=== PATIENT | female | born 1990 | race African-American/Black ===

== ENCOUNTER 2016-10-06 05:37 | Observation (INO) | payer OTHER ==
[2016-10-01 10:21] VITALS: BMI 31.0
--- NOTE | 2016-10-01 10:54 | PAT Medication Instructions ---
Service Date Oct 01, 2016. Current Home Medication List Ibuprofen (Advil), 400-600 MG PO PRN [Asmanex 220MCG], 1 PUFF INH HS Medication Instructions For Your Scheduled Surgery Ibuprofen (Advil), 400-600 MG PO PRN (not told to stop by surgeon- just use with caution) Albuterol inhaler- can use AM of surgery if needed- bring with you to hospital on day of surgery - Take the following medications as scheduled the night before surgery: Asmanex 220MCG 1 PUFF INH HS If you have any questions please call us at [phone] or [phone] ( [place]) or [phone]
[2016-10-01 11:08] LABS: BASO % 0.4 %; BASO ABS # 0.02 K/uL (0-0.2); COMPLETE YES; EOS % 2.2 %; HEMATOCRIT 36.6 % (37-47); IG% 0.2 %; LYMPH % 32.6 %; LYMPH ABS # 1.48 K/uL (1.2-3.4); MEAN CELL VOLUME 86.9 fL (80-100); MEAN CORPUSCULAR HEMOGLOBIN 29.5 pg (25-34); MEAN CORPUSCULAR HGB CONC 33.9 g/dl (32-36); MEAN PLATELET VOLUME 9.6 fL (7.4-10.4); MONO % 7.3 %; NEUT % 57.3 %; PLATELET COUNT 212 K/uL (130-400); RED BLOOD COUNT 4.21 M/uL (4.2-5.4); WHITE BLOOD COUNT 4.54 K/uL (4.8-10.8)
[2016-10-01 11:25] LABS: PREG INTERNAL NEGATIVE QC NEG CLEAR BACKGROUND; PREG INTERNAL POSITIVE QC POS CONTROL LINE
[~2016-10-06] VITALS: Ht 167.6 cm; Wt 88.2 kg
[2016-10-06] VITALS (7 sets, daily range): BP systolic 121–148; BP diastolic 63–82; PULSE 67–88; TEMP 36.3–36.9; O2SAT 99–100; Ht 167.6 cm; Wt 88.2 kg
[~2016-10-06 05:37] MED LIST: ASMANEX 220 MCG INH; IBUP-1050 PO
[2016-10-06] MEDS ORDERED: CEFAZOLIN 2000 MG/60 ML D5W 50 ML IV SCH (06:00)
[2016-10-06] MEDS ORDERED: LACTATED RINGER'S 1000ML 1,000 ML IV SCH ×2 (06:00)
[2016-10-06] MEDS ORDERED: MIDAZOLAM HCL 1 MG/ML 2ML VIAL ONE (06:32)
[2016-10-06] MEDS ORDERED: FENTANYL CITRATE INJ 50 MCG/1 ML 2 ML VIAL ONE ×2 (06:32→07:48)
--- NOTE | 2016-10-06 06:56 | History & Physical Bridge Note ---
H&P Re-Evaluation Bridge Note: I have examined the patient, reviewed the History & Physical and in the interval since the performance of the History & Physical I have noted the following changes of clinical significance: Discussed surgery with patient - plan is to attempt laparoscopic myomectomy, as imaging appears to show pedunculated fibroid. If this cannot be accomplished robotically, will need to convert to open case. Patient is aware of this and agreeable.
[2016-10-06] MEDS ORDERED: METHYLENE BLUE 0.5% 10 ML VIAL ONE (07:16)
[2016-10-06] MEDS ORDERED: BUPIVACAINE 0.5 % 5 MG/1 ML MPF 30ML VIAL ONE (07:16)
[2016-10-06] MEDS ORDERED: VASOPRESSIN 20 UNIT/ML VIAL ONE (07:33)
[2016-10-06] MEDS ORDERED: SODIUM CHLORIDE 0.9% PF 50 ML VIAL ONE (08:13)
[2016-10-06] MEDS ORDERED: SODIUM CHLORIDE 0.9% INJ 10 ML VIAL ONE (08:13)
[2016-10-06] MEDS ORDERED: PROPOFOL IV EMULSION 10 MG/ML 20 ML VIAL IV ONE (08:31)
[2016-10-06] MEDS ORDERED: ROCURONIUM BROMIDE 10 MG/ML 5 ML VIAL ONE (08:31)
[2016-10-06] MEDS ORDERED: LIDOCAINE HCL 2% 2 ML VIAL (20MG/ML) ONE (08:31)
[2016-10-06] MEDS ORDERED: DEXAMETHASONE SOD INJ 4 MG/ML VIAL ONE (08:31)
[2016-10-06] MEDS ORDERED: NEOSTIGMINE METHYLSULFATE 5 MG/5 ML SYR ONE (08:39)
[2016-10-06] MEDS ORDERED: GLYCOPYRROLATE INJ 0.2 MG/ML VIAL ONE (08:39)
[2016-10-06] MEDS ORDERED: ONDANSETRON INJ 2 MG/ML 2 ML VIAL ONE (08:39)
[2016-10-06] MEDS ORDERED: ATROPINE SULFATE 0.1 MG/ML 5ML SYR IV PRN (08:45)
[2016-10-06] MEDS ORDERED: ONDANSETRON INJ 2 MG/ML 2 ML VIAL IV PRN ×2 (08:45→10:45)
[2016-10-06] MEDS ORDERED: EpHEDrine SULFATE INJ 50 MG/ML AMP IV PRN (08:45)
[2016-10-06] MEDS ORDERED: LABETALOL HCL IV 5 MG/ML 20ML IV PRN (08:45)
[2016-10-06] MEDS ORDERED: HYDROmorphone INJ 1 MG/ML SYR IV PRN (08:45)
[2016-10-06] MEDS ORDERED: MEPERIDINE HCL 25 MG/ML CARP IV PRN (08:45)
[2016-10-06] MEDS ORDERED: PHENYLEPHRINE 100MCG/ML 5ML SYR ONE (09:40)
[2016-10-06] MEDS ORDERED: TISSEEL FIBRIN SEALANT 4ML TOP ONE (09:50)
[2016-10-06] MEDS ORDERED: HYDROmorphone INJ 2 MG/ML SYR/VIAL ONE (09:55)
[2016-10-06] MEDS ORDERED: ALBUTEROL HFA INHALER 8.5 GM INH ONE (10:35)
[2016-10-06] MEDS ORDERED: PROMETHAZINE HCL INJ 25 MG in SODIUM CHLORIDE 0.9% 50ML 50 ML IV PRN (10:45)
[2016-10-06] MEDS ORDERED: OXYCODONE/ACETAMINOPHEN 5-325 TAB PO PRN ×2 (10:45)
[2016-10-06] MEDS ORDERED: SIMETHICONE 80 MG CHEW PO PRN (10:45)
[2016-10-06] MEDS ORDERED: MAGNESIUM HYDROXIDE SUSP 30 ML UDC PO PRN (10:45)
--- NOTE | 2016-10-06 10:49 | [facility] Post Operative Brief Note ---
Immediate Operative Summary Operative Date Oct 06, 2016. Pre-Operative Diagnosis Uterine Leiomyoma Post-Operative Diagnosis Same as preop Procedure(s) Performed Laparoscopic Myomectomy Robotic Asisst with use of Excite Technique Surgeon Dr. Cook Cargo Bracer Surgeon(s) Dr. Ken Estimated Blood Loss 15 ml Findings Large exophytic posterior uterine fibroid. Uterus otherwise normal appearing. Tubes, ovaries, visible bowel, and appendix all appear normal. Specimens A. Uterine Fibroid Drains peter, clear yellow Anesthesia general Disposition Recovery Room / PACU
[2016-10-06] MEDS: FENTANYL CITRATE INJ 50 MCG/1 ML 2 ML VIAL IV PRN ×5 (10:50→11:25)
[2016-10-06] MEDS ORDERED: MOMLX PO (11:13)
[2016-10-06] MEDS ORDERED: IBUPROFEN 200 MG/10 ML UDC PO PRN (11:15)
[2016-10-06] MEDS ORDERED: [UNRECOGNIZED DRUG - CODE] PO (11:17)
[2016-10-06] MEDS ORDERED: IBUP100S PO (11:17)
[2016-10-06] MEDS ORDERED: RXCS5 PO (11:17)
--- NOTE | 2016-10-06 11:19 | Discharge Instructions ---
Discharge Instructions Date of Service Oct 06, 2016. Visit Reason for Visit: Uterine Fibroid Discharge Discharge Diagnosis / Problem: s/p myomectomy Discharge Goals Goal(s): Therapeutic intervention Activity Recommendations Activity Limitations: per Instructions/Follow-up section Anesthesia . Post Anesthesia Instructions: If you have had General Anesthesia or IV Sedation: * Do not drive today. * Resume driving when surgeon permits. * Do not make important decisions or sign legal documents today. * Call surgeon for: 1. Temperature elevations greater than 101 degrees F. 2. Uncontrollable pain. 3. Excessive bleeding. 4. Persistent nausea and vomiting. 5. Medication intolerance (nausea, vomiting or rash). * For nausea and vomiting use only clear liquids such as: tea, soda, bouillon until nausea subsides, then gradually increase diet as tolerated. * If you have any concerns or questions, call your surgeon's office. If physician is unavailable and it is an emergency, call 911 or go to the nearest emergency room. . Instructions / Follow-Up Instructions / Follow-Up ACTIVITY RECOMMENDATIONS: Activity: * During the first week at home, your activity should be similar to that done at the hospital prior to discharge. Your primary activity is in-house walking interspersed with rest periods. Preparing lunch for yourself is acceptable. You may go up and down stairs. Try to stay up progressively longer periods of time to help regain your strength more quickly. * During the second week at home, activities should include some meal preparation, walking to strengthen abdominal muscles and riding in a car. You may drive a car and make brief shopping trips at the end of the second week at home. * Lifting should not exceed 15-20 pounds during the first month after surgery. * Sexual intercourse can usually be resumed about 6 weeks after surgery depending on findings at your post-operative examinations. Bathing: * Showers or baths are permissible. Sitting in four to six inches of hot water (sitz bath) is often comforting after vaginal surgery and is permitted at any time. A sitz bath at bedtime can also assist in a better night's sleep. SPECIAL CARE INSTRUCTIONS: The major discomforts related to surgery have now passed and progressive improvement will occur. The tight uncomfortable feeling in the abdominal, pelvic and back area will gradually fade away. Fatigue may take the longest to disappear; your energy level may take several weeks to return to normal. At times you may become frustrated or impatient over not feeling as well or doing as much as you'd like , but this is a normal reaction to surgery and will pass with time. Vaginal Discharge: * Odorous, blood-tinged or brownish discharge may be present for one to three weeks after surgery. * Pads should be used and not tampons. * Stitches may be passed vaginally. * Bleeding may be somewhat increased approximately two weeks after surgery, which is related to the stitches dissolving. * If bleeding becomes free flowing, notify our office at . Bowel Care: * Constipation after surgery is very common. Foods that promote bowel activity (bran, fruit, prune juice) should be included in your diet. * A capsule, DIALOSE-PLUS, can be purchased without a prescription and can be taken daily (one or two capsules) to assist in promoting bowel activity. * If you have had vaginal surgery involving your rectum, we will discuss this when discharged from the hospital. Catheter or "CYSTO-CATH": * Approximately 80% of "bladder repair" patients will require a catheter at home until the swelling recedes. * Some patients require days to weeks before adequate bladder emptying will resume. * In general, after each time you urinate, un-clamp the catheter again. Measure the amount in the bag. When this is consistently below 100cc, call the office to make an appointment to have the catheter removed. Temperature: * Any fever above 100.4 degrees F should be reported to our office at . FOLLOW-UP: Post-Operative Appointments: * Individual instructions will have been given about the timing of your first examination, but this is usually at the end of the second week home. * You will need to call the office at soon after discharge to make the appointment for your post-op check-up if it has not already been scheduled. * Additional information regarding activity, sexual intercourse and when to return to work will be given at this appointment. WE WISH YOU A SPEEDY RECOVERY! Diet Recommendations Recommended Home Diet: resume previous diet Procedures Procedures Performed: Laparoscopic Myomectomy Robotic Asisst with use of Excite Technique Pending Studies Studies pending at discharge: no Medical Emergencies . Who to Call and When: Medical Emergencies: If at any time you feel your situation is an emergency, please call 911 immediately. . Non-Emergent Contact Non-Emergency issues call your: Primary Care Provider, [facility] . . "Provider Documentation" section prepared by Cece Cook.
--- NOTE | 2016-10-06 11:21 | Anesthesiology Progress Note ---
Anesthesia Post Op Note Date & Time Oct 06, 2016 at 11:21 Vital Signs Pain Intensity: 7 Vital Signs Past 12 Hours Date Time Temp Pulse Resp B/P Pulse Ox O2 Delivery O2 Flow Rate FiO2 10/06/16 11:02 77 13 100 10/06/16 11:02 79 13 10/06/16 11:01 130/73 10/06/16 10:57 81 15 100 10/06/16 10:57 81 15 10/06/16 10:56 127/71 10/06/16 10:52 71 19 100 10/06/16 10:52 72 19 10/06/16 10:51 128/83 10/06/16 10:49 73 17 100 10/06/16 10:49 73 17 10/06/16 10:46 123/71 10/06/16 10:44 72 18 100 10/06/16 10:44 72 18 10/06/16 10:41 128/72 10/06/16 10:39 78 17 100 10/06/16 10:39 79 17 10/06/16 10:36 116/65 10/06/16 10:34 71 19 128/58 100 10/06/16 10:34 36.0 71 16 128/58 100 Mask 10 10/06/16 10:34 71 19 10/06/16 06:16 36.7 79 18 121/63 100 Room Air Notes Mental Status: alert / awake / arousable, participated in evaluation Pt Amnestic to Procedure: Yes Nausea / Vomiting: adequately controlled Pain: adequately controlled Airway Patency, RR, SpO2: stable & adequate BP & HR: stable & adequate Hydration State: stable & adequate Anesthetic Complications: no major complications apparent
--- NOTE | 2016-10-06 11:36 | OPERATIVE REPORT ---
DATE OF OPERATION: 10/06/2016 PREOPERATIVE DIAGNOSES: 1. Uterine leiomyoma. 2. Pelvic pain. POSTOPERATIVE DIAGNOSES: Same. PROCEDURES PERFORMED: Laparoscopic myomectomy with robotic assistance and used of ExCITE technique. SURGEON: Dr. Ccee Cook. QUALITY ASSURANCE MONITOR: Dr. Ken. ESTIMATED BLOOD LOSS: 15 mL FINDINGS: Large exophytic posterior uterine fibroid. Uterus otherwise normal appearing. Tubes, ovaries, visible bowel, and appendix all appear normal. SPECIMENS: Uterine fibroid to pathology. DRAINS: Lilly, clear yellow at conclusion of case. ANESTHESIA: General. DISPOSITION: Stable and good to recovery room PACU. INDICATIONS FOR PROCEDURE: The patient is a 26-year-old G0 who has a known uterine mass and associated pelvic pain. Ultrasound of 07/04/2016 showed a uterus that was 7.7 x 4.6 x 5 cm with an endometrial lining of 5.1 mm. Ovaries were normal. There did appear to be a complex cystic mass measuring 5.6 x 5.9 x 5.4 cm on ultrasound; however, MRI on 07/08/2016 showed an exophytic mass from the posterior uterine body measuring 6.2 x 7 x 6.1 cm, likely a large pedunculated uterine fibroid. DESCRIPTION OF PROCEDURE: The patient was seen in the preoperative holding area where risks, benefits, alternatives to surgery were reviewed. All questions were answered. She elected to proceed with surgery. We discussed risks, specifically conversion to open, and if there was an ovarian cyst, the possibility of removing the ovary with the cyst. Also discussed the possibility of hysterectomy in the course of attempting to remove the fibroid from the uterine musculature. She was taken to the operating room where 2 grams of Ancef were infused preoperatively. General anesthesia was introduced. She was prepared and draped in the usual sterile fashion in the dorsal lithotomy position. A timeout was confirmed. A Lilly catheter was placed. A weighted speculum was placed in the vagina and the cervix was visualized. The anterior lip was grasped with a single tooth tenaculum. A VCare medium size was inserted as a uterine manipulator. Gloves were changed and attention was then turned to the abdomen. A supraumbilical incision was made using the open Latosha technique. The umbilical laparoscopic trocar was placed, intraabdominal placement was confirmed, and the abdomen was insufflated with CO2 gas to a pressure of 15 mmHg. The pelvis was explored with the above-noted findings. Bilateral incisions for 5 mm trocars and an teachers assistant port were placed, and these trocars were inserted under direct visualization. The robot was docked. Next, Pitressin was used to assist with hemostasis during the procedure and this was 1 mL diluted in 60 mL of saline. This was injected using a large spinal needle into the posterior portion of the uterus and throughout the fibroid. A vertical incision was made through the serosa into the posterior fibroid. The fibroid was then shelled out from the serosa and the myometrium. At no point did the dissection enter the uterine cavity. It was actually, due to the exophytic nature of the fibroid, a very superficial uterine incision. When the fibroid was completely excised, it was placed to side and the uterine incision was reapproximated using 0 V-Loc suture, only a single layer of this suture was required given the superficial nature of the incision. Excellent hemostasis was observed after a running suture of the V-Loc was used to reapproximate the superficial uterine myometrium and serosal layer. The ExCITE technique was then performed with insertion of an EndoCatch bag into the abdomen. The fibroid was placed into the bag and the bag was brought up through the umbilical incision. The umbilical incision was slightly extended to admit the bag and a small sized Mello retractor. The fibroid was grasped with a towel clamp and cord internally to admit the fibroid in its entirety through the umbilical incision, using the EndoCatch bag to perform this procedure external to the body. The fibroid was sent to pathology. The EndoCatch and Mello retractor were removed from the abdomen. The pelvis was then irrigated and excellent hemostasis was noted at the uterine incision. Next, Tisseel coagulant was used to obtain excellent hemostasis on top of the uterine incision. All trocar sites were removed under direct visualization. The fascial incision at the supraumbilical trocar site was reapproximated using a running stitch of 0 Vicryl. All skin incisions were reapproximated using 4-0 Vicryl in a subcuticular fashion. Dermabond glue was used to reapproximate skin incisions as well. The patient at the conclusion of the surgery was in stable and good condition and I anticipate discharge to home today. I attest to the content of the Intraoperative Record and any orders documented therein. Any exceptio ns are noted below.
[2016-10-06] MEDS ORDERED: IV FLUIDS COMPLETED PRN (11:45)
[2016-10-06] MEDS: OXYCODONE HCL SOLN 5 MG/5 ML UDC PO PRN ×2 (13:20→17:35)
[2016-10-06] MEDS: ACETAMINOPHEN SOLN 325 MG/10.15 ML UDC PO PRN ×2 (13:43→17:34)
[2016-10-06] MEDS ORDERED: DOCUSATE SODIUM 100 MG CAP PO SCH (21:00)
--- NOTE | 2016-10-10 03:58 | DISCHARGE SUMMARY ---
ADMISSION DIAGNOSIS: Uterine leiomyoma. DISCHARGE DIAGNOSIS: Same. PROCEDURES PERFORMED: Laparoscopic myomectomy robotic assist with the use of ExCITE technique. SURGEON: Cece Cook DO FURNITURE CRATER: Jerry Ken MD FINDINGS: Large exophytic posterior uterine fibroid, uterus otherwise normal appearing. DESCRIPTION OF STAY: The patient was admitted following the above noted procedures. Her postoperative course was unremarkable. She was discharged to home the same day in stable and good condition, follow up 2 weeks and then 6 weeks in the office. ACTIVITY: No heavy lifting. MEDICATIONS: Motrin and Percocet liquid form due to patient's request. DIET: Regular. CONDITION ON DISCHARGE: Stable and good.
== END 2016-10-06 18:10 | disposition home or self-care (01) ==
LOC: ENRESERVDT → ENRESERVTM → C.ACU 05:37 → C.MS4N 10:40
PROVIDERS: ADMIT Obstetrics & Gynecology; ATTEND Obstetrics & Gynecology
DX: D25.9 Leiomyoma of uterus, unspecified (principal); J45.909 Unspecified asthma, uncomplicated; Z82.5 Family history of asthma and other chronic lower respiratory diseases; Z82.49 Family history of ischemic heart disease and other diseases of the circulatory system
CPT/HCPCS: 58545; S2900